=== PATIENT | female | born 1960 | race Caucasian/White ===

== ENCOUNTER → 2021-01-25 | Day surgery (SDC) | payer OTHER ==
[~2021-01-25] VITALS: Ht 154.9 cm; Wt 52.6 kg
[~2021-01-25] MED LIST: CYCLOBENZAPRINE10 MG PO; HCTZ12.5 MG PO; LIPITOR20 MG PO; LOVAZA1 GM PO; MOBIC7.5 MG PO; PRINIVIL10 MG PO
[2021-01-25 07:35] LABS: BASOPHIL 0.7 % (0-2); EOSINOPHIL 3.3 % (0-5); HCT 41.4 % (37.0-47.0); HGB 14.1 g/dl (12.5-16.0); LYMPHOCYTE 29.2 % (15-48); MCH 30.8 pg (25.0-31.0); MCHC 34.1 g/dL (32.0-36.0); MCV 90.4 fL (78.0-100.0); MONOCYTE 10.7 % (0-12); MPV 8.8 fL (6.0-9.5); NEUTROPHIL 55.7 % (41-80); NRBC 0; PLT 280 K/uL (150-400); RBC 4.58 M/uL (4.20-5.40); RDW 12.8 % (11.5-14.0); WBC 7.6 K/uL (4.0-10.5)
== END | disposition home or self-care (01) ==
LOC: FAS 06:56
PROVIDERS: Oral & Maxillofacial Surgery
DX: K04.7 Periapical abscess without sinus (principal); K02.9 Dental caries, unspecified; I10 Essential (primary) hypertension; Z20.822 Contact with and (suspected) exposure to COVID-19
CPT/HCPCS: 36415; 71045; 85025; J1100; J1885; J2250; J2405; J2704; J2710; J3010; J7120